=== PATIENT | male | born 2000 | race Caucasian/White ===

== ENCOUNTER 2021-06-12 18:32 | Outpatient (REF) | payer OTHER, MEDICAID, SELFPAY ==
[2021-06-13 16:55] LABS: COVID-19 RT-PCR UVMMC Result Negative (Negative)
== END 2021-06-12 18:33 | disposition home or self-care (01) ==
LOC: LBN 18:32
PROVIDERS: PCP Nurse Practitioner; Visit Provider Nurse Practitioner
DX: J98.8 Other specified respiratory disorders (principal); Z20.822 Contact with and (suspected) exposure to COVID-19
CPT/HCPCS: U0003

== ENCOUNTER 2022-01-05 14:27 | Outpatient (RCR) | payer OTHER, MEDICAID, SELFPAY ==
--- NOTE | 2022-01-05 13:00 | HOLTER_ITS ---
APPROVED REPORT Conclusion This was a 24-hour Holter monitor ordered for palpitations Predominant rhythm was sinus with an average heart rate of 74. Minimum was 41, maximum 139 A total of 2 isolated premature ventricular contractions were seen There were no supraventricular dysrhythmias. Episodes labeled SVT were in fact sinus tachycardia There was no atrial fibrillation, no high-grade AV block, no pauses greater than 3 seconds There were no apparent patient symptoms
== END 2022-01-11 23:59 | disposition home or self-care (01) ==
LOC: RT 14:27
PROVIDERS: PCP Nurse Practitioner; Visit Provider Nurse Practitioner
DX: R00.2 Palpitations (principal); R00.0 Tachycardia, unspecified
CPT/HCPCS: 93225; 93226

== ENCOUNTER 2022-01-12 03:55 | Outpatient (CLI) | payer OTHER, MEDICAID, SELFPAY ==
[2022-01-12 14:18] LABS: Hemoglobin A1C 5.2 % (<5.7)
[2022-01-12 14:50] LABS: Calculated LDL 72 mg/dL (<100); Cholesterol 140 mg/dL (<200); HDL Cholesterol 57 mg/dL (40-60); Triglyceride 58 mg/dL (<150)
== END 2022-01-12 03:56 | disposition home or self-care (01) ==
LOC: LBO 03:55
PROVIDERS: PCP Nurse Practitioner; Visit Provider Nurse Practitioner
DX: Z13.1 Encounter for screening for diabetes mellitus (principal); Z13.220 Encounter for screening for lipoid disorders
CPT/HCPCS: 36415; 80061; 83036

== ENCOUNTER 2024-02-24 12:00 | Emergency (ER) | payer OTHER, SELFPAY ==
[2024-02-24 12:02] VITALS: BP 113/73; PULSE 70; RESP 10; TEMP 36.6; O2SAT 96
--- NOTE | 2024-02-24 12:15 | DI.RAD_ITS ---
Exam(s) XR KNEE RT 3V AP,LAT,LUCY EXAM: XR KNEE RT 3V AP,LAT,LUCY CLINICAL HISTORY: knee pain. TECHNIQUE: 2D digital imaging was performed. Three views. COMPARISON: No exams were available for comparison FINDINGS: BONES: No acute fracture is present. No bony destructive lesion is seen. Screws at the level of the tibial tubercle. JOINTS: The knee is normally aligned. No joint effusion is seen. Joint spaces are maintained. SOFT TISSUE: Normal. IMPRESSION: No acute abnormality. DATA REPOSITORY: RADIATION DOSE DELIVERED:
--- NOTE | 2024-02-24 14:02 | ED.GENADUL_ITS ---
Discharge Plan Disposition Patient Disposition: Home Condition: Stable Discharge Details Clinical Impression: Knee pain Primary Care Provider: Jeff Tabor ED Provider: Virgil Park Home Meds and New Rx's Prescriptions: No Action No Known Home Meds Discharge Instructions Additional Instructions: xray is negative for any bony injury you can follow up with your PCP if your pain persist you can take motrin or tylenol for pain HPI General Date/Time Provider Initiated Documentation: 02/24/24 12:15 . Limitations to Documentation: no limitations . Information obtained by: patient . HPI Narrative: 23-year-old gentleman without significant past medical history presents for evaluation of right knee pain. He reports that at work he had his knee hit by a piece of machine. He reports pain. This occurred yesterday. He states that he has a postoperative knee brace that he has been wearing. He has not tried medication for relief. With the brace on he is able to ambulate without discomfort. Related Data Home Medications ?Medication ?Instructions ?Recorded ?Confirmed Unknown [No Known Home Meds] 09/08/21 02/24/24 Allergies Allergy/AdvReac Type Severity Reaction Status Date / Time amoxicillin Allergy Intermediate hives Unverified 02/24/24 12:06 Arginine Allergy Unknown Hives/Facial Uncoded 02/24/24 12:06 swelling General Stated Complaint: Orthopedic REI: 3 Exam Narrative Exam Narrative: Review of Systems: All systems reviewed & are unremarkable except as noted in HPI and below Well-developed, no acute distress NCAT Unlabored respiratory effort Extremities w/o deformity Right knee in hinged knee brace Gait normal Course Vital Signs Vital signs: Vital Signs Temperature 36.6 C 02/24/24 12:02 Pulse 70 02/24/24 12:02 Respiratory Rate 10 L 02/24/24 12:02 Blood Pressure 113/73 02/24/24 12:02 Pulse Oximetry 96 02/24/24 12:02 Temperature 36.6 C 02/24/24 12:02 Temperature Source Oral 02/24/24 12:02 Pulse 70 02/24/24 12:02 Respiratory Rate 10 L 02/24/24 12:02 Respiratory Effort Normal 02/24/24 12:06 Blood Pressure 113/73 02/24/24 12:02 Pulse Oximetry 96 02/24/24 12:02 Oxygen Delivery Method Room Air 02/24/24 12:02 Oxygen Flow Rate 0 09/12/24 12:02 Pain Level 6 02/24/24 12:14 Comment 09/21 when moving. took tylenol 500 mg about 1145 02/24/24 12:02 Medical Decision Making Emergent evaluation of right knee pain. I attempted evaluation of the patient twice, but he could not take his pants off for full evaluation. He was noted to be walking normally there is no deformity observable. An x-ray was obtained and per the radiology read there is no acute findings. Recommend follow-up with PCP as needed Quality:[facility] Health Related Social Needs: No Data to Display [facility] All Active Problems (Updated 02/24/24 @ 13:08 by Virgil Park MD) Knee pain (Acute) Patellar dislocation (Acute) Situational anxiety (Acute) Palpitations (Acute) Medical History ADHD (attention deficit hyperactivity disorder) (12/24/14) Allergic rhinitis (10/03/14) Chronic left shoulder pain (02/10/17) seen by [facility] ortho- rec PT for chronic bilateral shoulder pain/impingement 2018 ongoing pain Concussion (05/25/12) 2019 Depression (06/22/13) Functional heart murmur (05/25/12) Short stature (03/14/14) Followed at [facility] endocrine. GH deficiency. On GH Tx Short stature (child) GH deficiency Surgical History Circumcision Family History Mother Obesity Asthma Father Attention deficit hyperactivity disorder (ADHD) dropped out of school before HS Asthma Sister Learning disability Mental disorder ANXIETY GRANDPARENT Substance abuse Diabetes Heart disease Hyperlipidemia Mental disorder DEPRESSION/ANXIETY Maternal Grandfather Alcohol abuse Diabetes Hyperlipidemia Hypertension Paternal Grandfather , age 72 Prostate cancer Diabetes Maternal Grandmother Depression Paternal Grandmother Depression Social History Smoking/Tobacco Use Status: Current every day Tobacco Type: e-cigarettes Tobacco: How many years used: 4 Quit status: considering quitting Second Hand Exposure: Yes Smoking risk assessment performed?: Yes Alcohol Intake: never Drug use: Daily Substance use type: marijuana Caregiver/Support person: No Household members: other Details: roommates Housing: house Communication Needs: None Do you need help understanding health information?: Rarely Pets and animals: No Sexually active: Yes Do you think of yourself as: straight/heterosexual Current gender identity: male What is your relationship status?: never How often do you talk on the phone with friends or family?: three or more times per week How often do you get together with friends or relatives?: once per week How often do you attend sikhism or yarsani services?: decline to answer Do you belong to any clubs or organized social groups?: no Panel score (0-1 are the most socially isolated patients): 1 What type of physical activity do you participate in: weight lifting and other Details: basketball,soccer Duration: > 90 minutes/day Frequency: daily [place]/Restorationist: None Special maine needs: No Seatbelt use: always Helmet use: Yes Helmet use: always Drive intox or ride w/intox 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
== END 2024-02-24 13:12 | disposition home or self-care (01) ==
PROVIDERS: Emergency Provider Emergency Medicine; PCP Nurse Practitioner Family
DX: M25.561 Pain in right knee (principal); F17.290 Nicotine dependence, other tobacco product, uncomplicated
CPT/HCPCS: 73562; 99283